=== PATIENT | female | born 1970 | race Caucasian/White ===

== ENCOUNTER 2016-11-27 14:12 | Emergency (ER) | payer BC ==
[2016-11-27 16:43] LABS: HEMOGLOBIN 16.2 gm/dl (12.3-15.3); RED BLOOD COUNT 5.09 M/UL (4.00-5.10); WHITE BLOOD COUNT 7.1 K/UL (4.5-11.0)
[2016-11-27 17:16] LABS: BUN/CREATININE RATIO 23 (0-10)
== END 2016-11-27 19:30 | disposition home or self-care (01) ==
LOC: ER1 14:12
PROVIDERS: Family Medicine
DX: R07.89 Other chest pain (principal); R06.00 Dyspnea, unspecified; Z88.2 Allergy status to sulfonamides; M06.9 Rheumatoid arthritis, unspecified; Z79.899 Other long term (current) drug therapy
CPT/HCPCS: 36415; 71010; 80053; 82550; 82553; 83874; 83880; 84484; 85025; 93005; 96374; 99285; J2405

== ENCOUNTER → 2021-09-26 | Outpatient (CLI) | payer BC | LOC: SLEEP 21:30 | DX: G47.33 Obstructive sleep apnea (adult) (pediatric) (principal); M06.9 Rheumatoid arthritis, unspecified; J84.9 Interstitial pulmonary disease, unspecified | CPT/HCPCS: 95811 ==

== ENCOUNTER → 2022-02-12 | Outpatient (CLI) | payer BC | LOC: KOH-I 01-22 14:00 | DX: J84.9 Interstitial pulmonary disease, unspecified (principal); N06.9 Isolated proteinuria with unspecified morphologic lesion | CPT/HCPCS: 71250 ==

== ENCOUNTER → 2022-02-28 | Outpatient (CLI) | payer BC | LOC: HEART 5 13:02 | DX: M06.9 Rheumatoid arthritis, unspecified (principal) | CPT/HCPCS: 94010; 94729 ==